=== PATIENT | male | born 1985 | race Caucasian/White ===

== ENCOUNTER 2018-04-25 08:03 | Day surgery (SDC) | payer OTHER ==
[2018-04-25] VITALS (11 sets, daily range): BP systolic 105–117; BP diastolic 56–75
[~2018-04-25] VITALS: Ht 182.9 cm; Wt 71.7 kg
[~2018-04-25 08:03] MED LIST: ceFAZolin 1gm IVPB IVPB ONE; celeBREX 200mg Cap **SURGERY PATIENTS ONLY ORAL ONE; oxyCONTIN 20mg tab ORAL ONE
--- NOTE | 2018-04-25 08:42 | Pre-Procedure Note/Attestation ---
Pre-Procedure Note/Attestation Complete Prior to Procedure Planned Procedure: left Procedure Narrative: ee diagnostic arthroscopy, possible synovemtomy, possible menisectomy Indications for Procedure Pre-Operative Diagnosis: left knee internal drangement Attestation I attest that I discussed the nature of the procedure; its benefits; risks and complications; and alternatives (and the risks and benefits of such alternatives ), prior to the procedure, with the patient (or the patient's legal it sales representative). I attest that, if there was a reasonable possibility of needing a blood transfusion, the patient (or the patient's legal it sales representative) was given the [facility] standardized written summary, pursuant to the Jerad Marlen Blood Safety Act ([place] Health and Safety Code # 1645, as amended). I attest that I re-evaluated the patient just prior to the surgery and that there has been no change in the patient's H&P, except as documented below: Rudolph Ag MD Apr 25, 2018 08:42
--- NOTE | 2018-04-25 08:43 | Operative Note - PDOC ---
Operative Note Operative Note Pre-op Diagnosis: left knee internal drangement Procedure: see op report Post-op Diagnosis: same as pre-op plus Operative Findings: consistent w/pre-op dx studies Anesthesia: MAC Specimen: none Complications: none Condition: stable Estimated Blood Loss: none Implant(s) used?: No Rudolph Ag MD Apr 25, 2018 08:43
[2018-04-25] MEDS ORDERED: Tylenol #3 tab (300mg/30mg) ORAL PRN (08:45)
[2018-04-25] MEDS ORDERED: HYDROmorphone 1mg/ml Carpuject SUBQ PRN (08:45)
[2018-04-25] MEDS ORDERED: D5 1/2NS 1,000 ML IV SCH (08:45)
[2018-04-25] MEDS ORDERED: Norco 5mg/325mg tab ORAL PRN (08:45)
[2018-04-25] MEDS ORDERED: oxyCONTIN 20mg tab ORAL ONE (08:56)
[2018-04-25] MEDS ORDERED: celeBREX 200mg Cap **SURGERY PATIENTS ONLY ORAL ONE (08:56)
[2018-04-25] MEDS ORDERED: fentaNYL 100 mcg/2 mL IV ONE (09:05)
[2018-04-25] MEDS ORDERED: Midazolam 2mg/2ml Inj ONE (09:05)
[2018-04-25] MEDS ORDERED: Ketorolac 30mg Inj ONE ×2 (09:06→09:28)
[2018-04-25] MEDS ORDERED: Lidocaine 1% MPF 10mg/ml 5ml ONE (09:06)
[2018-04-25] MEDS ORDERED: Propofol 200mg/20ml IV ONE (09:06)
[2018-04-25] MEDS ORDERED: ADDERAL20 MG ORAL (09:11)
[2018-04-25] MEDS ORDERED: ESCITALOPRAM OX10 MG ORAL (09:11)
[2018-04-25] MEDS ORDERED: Kenalog-40 1ml Vial ONE (09:27)
[2018-04-25] MEDS ORDERED: Morphine Sulfate PF 10 ML ONE (09:27)
[2018-04-25] MEDS ORDERED: EPINEPHrine 1mg/1ml Amp ONE (09:27)
[2018-04-25] MEDS ORDERED: Lidocaine 1% 10mg/ml/Epi 0.005mg/ml 30ml vial INJ ONE (09:28)
[2018-04-25] MEDS ORDERED: Bupivacaine 0.25% Inj 30ml INJ ONE (09:28)
[2018-04-25] MEDS ORDERED: NS Irrig 2000ml IRRIG ONE (10:00)
[2018-04-25] MEDS ORDERED: Sterile Water For Irrig 2000ml IRRIG ONE (10:00)
[2018-04-25] MEDS ORDERED: LR 1000ml ONE (10:00)
[2018-04-25] MEDS ORDERED: NS Irrig 4000ml IRRIG ONE (10:00)
[2018-04-25] MEDS ORDERED: LR 1000ml 1,000 ML IVLG SCH (10:13)
--- NOTE | 2018-04-25 10:13 | Anethesia Preoperative Eval ---
Anesthesia Pre-op PMH/ROS General Date of Evaluation: Apr 25, 2018 Time of Evaluation: 09:40 Anesthesiologist: Myron ASA Score: ASA 2 Mallampati Score Class I : Soft palate, uvula, fauces, pillars visible Class II: Soft palate, uvula, fauces visible Class III: Soft palate, base of uvula visible Class IV: Only hard plate visible Mallampati Classification: Class II Surgeon: Ancelmo Diagnosis: L knee pain Surgical Procedure: L knee scope Anesthesia History: none Family History: no anesthesia problems Allergies: Coded Allergies: No Known Allergies (Unverified , 04/25/18) Medications: see eMAR Patient NPO?: Yes Past Medical History Cardiovascular: Denies: HTN, CAD, ND, valve dz, arrhythmia, other Pulmonary: Denies: asthma, COPD, INDER, other Gastrointestinal/Genitourinary: Reports: GERD - mild; Denies: CRI, ESRD, other Neurologic/Psychiatric: 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 Exam Physician Exam Last Vital Signs Date Time Temp Pulse Resp B/P (MAP) Pulse Ox O2 Delivery O2 Flow Rate FiO2 04/25/18 09:04 Room Air 04/25/18 09:01 98.5 71 18 107/64 99 Constitutional: NAD Neurologic: CN 2-12 intact Cardiovascular: RRR, no M/R/G Respiratory: CTA Gastrointestinal: S/NT/ND Airway Exam Mallampati Score: Class II MO: full Neck: flexible ROM: full Teeth: intact Dentures: no upper, no lower Anesthesia Pre-op A/P Labs see chart Studies Pre-op Studies: EKG - NSR Risk Assessment & Plan Assessment: ASA 2 Plan: GS with LMA Pre-Antibiotics Drug: Ancef 1gr Given Within 1 Hr of Incision: Yes Time Given: 10:06 Elan Sanches MD Apr 25, 2018 10:13
[2018-04-25] MEDS ORDERED: Midazolam 2mg/2ml Inj IVP PRN (10:15)
[2018-04-25] MEDS ORDERED: DiphenhydrAMINE 50mg/ml Inj IVP PRN (10:15)
[2018-04-25] MEDS ORDERED: Metoclopramide 10mg/2ml Inj IVP PRN (10:15)
[2018-04-25] MEDS ORDERED: Ketorolac 30mg Inj IV PRN (10:15)
[2018-04-25] MEDS ORDERED: Meperidine 50mg/ml Inj(FOR RIGORS ONLY) IV PRN (10:15)
[2018-04-25] MEDS ORDERED: Sodium Chloride 10ml vial INJ ONE (10:17)
[2018-04-25] MEDS ORDERED: ePHEDrine 50mg/ml Inj ONE (10:17)
--- NOTE | 2018-04-25 10:51 | Immediate Post-Op Evaluation ---
Immediate Post-Op Evalulation Immediate Post-Op Evalulation Procedure: L knee arthroscopy meniscectomy Date of Evaluation: Apr 25, 2018 Time of Evaluation: 10:50 IV Fluids: 1000 Blood Products: none Estimated Blood Loss: min Urinary Output: none Blood Pressure Systolic: 126 Blood Pressure Diastolic: 72 Pulse Rate: 68 Respiratory Rate: 20 O2 Sat by Pulse Oximetry: 97 Temperature (Fahrenheit): 97.5 Pain Score (1-10): 1 Nausea: No Vomiting: No Complications none Patient Status: reacts, patent, none Hydration Status: adequate Elan Sanches MD Apr 25, 2018 10:51
--- NOTE | 2018-04-25 13:08 | 48 Hour Post Anesthesia Eval ---
Post Anesthesia Evaluation Procedure: L knee arthroscopy meniscectomy Date of Evaluation: Apr 25, 2018 Time of Evaluation: 13:07 Blood Pressure Systolic: 108 0: 68 Pulse Rate: 64 Respiratory Rate: 20 Temperature (Fahrenheit): 97.6 O2 Sat by Pulse Oximetry: 98 Airway: patent Nausea: No Vomiting: No Pain Intensity: 1 Hydration Status: adequate Cardiopulmonary Status: stable Mental Status/LOC: patient returned to baseline Follow-up Care/Observations: n/a Post-Anesthesia Complications: none Follow-up care needed: ready to discharge Elan Sanches MD Apr 25, 2018 13:08
--- NOTE | 2018-04-25 18:30 | Operative Note - Dictated ---
DATE OF OPERATION: 04/25/2018 PREOPERATIVE DIAGNOSES: 1. Left knee medial collateral ligament sprain. 2. Left knee chondral damage, lateral compartment. POSTOPERATIVE DIAGNOSES: 1. Left knee medial collateral ligament sprain. 2. Left knee chondral damage, lateral compartment. 3. Hypertrophic synovial tissue, medial and lateral patellofemoral compartment. Procedure: 1. Left knee diagnostic arthroscopy 2. Tricompartmental synovectomy/excision of fta pad SURGEON: Rudolph Ag M.D. ANESTHESIA: MAC. INDICATION FOR PROCEDURE: The patient is a pleasant gentleman, who has had a significant injury to his left knee. He had MRI, which showed some chondral damage of lateral compartment as well as sprain of the MCL. He failed conservative treatment and elected to undergo left knee diagnostic arthroscopy, meniscectomy, synovectomy, and chondroplasty. Risks, limitations, expectations, and complications of the procedure were discussed in detail. All questions addressed. DESCRIPTION OF PROCEDURE: After informed consent was obtained, the patient was brought to the operating room. The patient was placed under monitored anesthesia control. Tourniquet was applied to left proximal thigh. Left leg was prepped and draped in a sterile manner. Time-out was performed. A 0.25% Marcaine injected in the knee. Portal sites were injected with lidocaine. Esmarch was used to exsanguinate the extremity. Inferolateral stab incision was then made. Trocar was introduced into the knee joint. There is hypertrophic fat pad in the synovial tissue and patellofemoral compartment making visualization somewhat difficult. Medial compartment was entered. The gutter was free of any loose bodies. Medial compartment was entered. There was hypertropic synovial tissue in the medial compartment anteriorly making visualization difficult. Therefore, medial working portal established. Synovectomy and excision of the fat pad was performed in the anterior portion of the medial compartment, intercondylar notch, and lateral compartment. Once that was done, the medial compartment was entered. The meniscus was probed and noted to be intact and particularly in light of the previous MCL sprain. The ACL was probed and noted to be intact. Lateral compartment was entered. The meniscus was intact. There is 6 x 2 mm fissure in the tibial plateau. Camera was then repositioned in the patellofemoral compartment and tenosynovectomy/excision of fat pad was completed. Once that was done, the instruments were removed. Portal sites were closed with 3-0 Monocryl sutures. Steri-Strips and a sterile dressing were applied. The patient was awoken and taken to recovery room with stable vital signs. ESTIMATED BLOOD LOSS: None. COMPLICATIONS: None. SPECIMENS: None. IMPLANTS: None. Rudolph Ag M.D. DR: Bertha JOB#: [id number] CC: MEI
== END 2018-04-25 12:40 | disposition home or self-care (01) ==
LOC: SUR 08:03
DX: S83.412A Sprain of medial collateral ligament of left knee, initial encounter (principal); M67.262 Synovial hypertrophy, not elsewhere classified, left lower leg; M94.9 Disorder of cartilage, unspecified; F41.9 Anxiety disorder, unspecified; K21.9 Gastro-esophageal reflux disease without esophagitis; F90.9 Attention-deficit hyperactivity disorder, unspecified type; Z87.891 Personal history of nicotine dependence
CPT/HCPCS: 29876; J0171; J0690; J1885; J2250; J2274; J2405; J2704; J3010; J3301; J3490; 94003; 94150